=== PATIENT | male | born 1980 | race Caucasian/White ===

== ENCOUNTER → 2017-09-27 | Outpatient (CLI) | payer BC | LOC: COL.LAB 14:33 | DX: Z00.00 Encounter for general adult medical examination without abnormal findings (principal) ==

== ENCOUNTER → 2017-10-25 | Outpatient (CLI) | payer BC | LOC: COL.RAD 12:54 | DX: R10.9 Unspecified abdominal pain (principal) | CPT/HCPCS: Q9967 ==